=== PATIENT | male | born 1950 | race Two or more races ===

== ENCOUNTER 2018-07-14 05:24 | Day surgery (SDC) | payer OTHER ==
[~2018-07-14 05:24] MED LIST: ATORVASTATIN CA20 MG; SYNTHROI PO
[2018-07-14] MEDS ORDERED: ULTRACET PO (09:49)
[2018-07-14] MEDS ORDERED: NEURONTIN300 MG PO (09:50)
[2018-07-14] MEDS ORDERED: COLACE100 MG PO (09:51)
== END 2018-07-14 11:10 | disposition home or self-care (01) ==
LOC: CIR.AMB 05:24
DX: K40.90 Unilateral inguinal hernia, without obstruction or gangrene, not specified as recurrent (principal)